=== PATIENT | female | born 1970 | race Caucasian/White ===

== ENCOUNTER 2018-12-23 09:06 | Emergency (ER) | payer BC ==
--- NOTE | 2018-12-23 10:28 | EDM.PDOC ---
ED HPI GENERAL MEDICAL PROBLEM - General Chief Complaint: Laceration Stated Complaint: BIT THREW HER LIP Time Seen by Provider: 12/23/18 09:15 Source of Information: Reports: Patient, Family () History Limitations: Reports: No Limitations - History of Present Illness INITIAL COMMENTS - FREE TEXT/NARRATIVE: 48-year-old female lost her balance tripped striking a seated bench in their home with laceration to her left lower lip and mouth. Applied pressure to her mouth to control the bleeding. She denies any loss of consciousness. She notices little bit of neck discomfort and some pain in her left ring finger. No other complaints are voiced. Upon arrival was able to clean up her bleeding with some peroxide she has just a small poke hole through the bottom part of her mouth which was Dermabond. She does have a laceration on the inside of her mouth but this is well marcated. She has just a small focal at the [place] border of her bottom lip that is well approximated. Onset: Today Duration: Minutes: Location: Reports: Face - Related Data Allergies Allergy/AdvReac Type Severity Reaction Status Date / Time No Known Drug Allergies Allergy Cannot Verified 12/23/18 09:51 Remember Home Meds: Home Meds FLUoxetine HCl [Fluoxetine HCl] 20 mg PO DAILY 12/23/18 [History] Metoprolol Tartrate 50 mg PO BID 12/23/18 [History] amLODIPine Besylate [Amlodipine Besylate] 5 mg PO DAILY 12/23/18 [History] atorvaSTATin Calcium [Atorvastatin Calcium] 20 mg PO BEDTIME 12/23/18 [History] hydroCHLOROthiazide [Hydrochlorothiazide] 25 mg PO DAILY 12/23/18 [History] ED ROS GENERAL - Review of Systems Review Of Systems: ROS reveals no pertinent complaints other than HPI. ED EXAM, SKIN/RASH Exam: See Below Exam Limited By: No Limitations General Appearance: Alert, WD/WN, No Apparent Distress, Obese Eye Exam: Bilateral Eye: EOMI, PERRL Ears: Hearing Grossly Normal Nose: Normal Inspection Throat/Mouth: Normal Inspection, Other (Small laceration on lower powder her mouth this was covered with a Dermabond after cleaning with peroxide. There is a small punctuate laceration at the [place] border as well marcated. There is a laceration is also well marcated inside the patient's lower lip) Head: Atraumatic, Normocephalic Neck: Normal Inspection, Supple, Non-Tender, Full Range of Motion. No: Lymphadenopathy (L), Lymphadenopathy (R) Respiratory/Chest: No Respiratory Distress, Lungs Clear Cardiovascular: Regular Rate, Rhythm Extremities: Other (Mild swelling over the left ring finger and tenderness at the proximal phalanx. No shortening. No rotational deformity. Full range of motion DFP PIP and metacarpal joint are scapulary fill the distal tip of the finger. Full wrist and forearm range of motion left area remaining fingers are atraumatic and without any pain or discomfort left hand) Neurological: Alert, Oriented, No Motor/Sensory Deficits Psychiatric: Normal Affect, Normal Mood ED SKIN PROCEDURES - Laceration/Wound Repair Lower Mouth Lac/Wound length In cm: 0.3 Appearance: Superficial, Linear, Clean Closed with: Dermabond Course - Orders/Labs/Meds Orders: Active Orders 24 hr Category Date Time Status Hand Comp Min 3V Lt [CR] Stat Exams 12/23/18 09:53 Ordered Departure - Departure Time of Disposition: 10:40 Disposition: Home, Self-Care 01 Condition: Good Clinical Impression: Contusion of left ring finger Laceration of mouth, internal Qualifiers: Encounter type: initial encounter Qualified Code(s): S01.512A - Laceration without foreign body of oral cavity, initial encounter - Discharge Information Instructions: Mouth Laceration, [id number] Referrals: Nahed Rodriguez PA-C [Primary Care Provider] - Forms: ED Department Discharge - My Orders Last 24 Hours: My Active Orders 12/23/18 09:53 Hand Comp Min 3V Lt [CR] Stat - Assessment/Plan Last 24 Hours: My Active Orders 12/23/18 09:53 Hand Comp Min 3V Lt [CR] Stat Assessment:: mouth laceration hand contusion left ring finger Plan: 1. Keep the mouth and lips clean. He may use a triple antibiotic over the area. 2. Expect swelling and soreness last several days. 3. Follow-up as needed with her primary care
--- NOTE | 2018-12-23 10:47 | CR ---
[id number] RAD/RAD Hand Left 3V Exam: RAD Hand Left 3V Indication:FALL, COMPLAINT OF PAIN MAINLY IN 4TH (RING) DIGIT. Comparison: No prior imaging for comparison. Discussion: No significant osseous or soft tissue abnormality. Impression: No acute findings in the hand. Drake Carrasco MD 12/23/18 1046 Thank you for allowing us to participate in the care of your patient.
== END 2018-12-23 10:40 | disposition home or self-care (01) ==
LOC: KA.ED 09:06
DX: S01.512A Laceration without foreign body of oral cavity, initial encounter (principal); S60.042A Contusion of left ring finger without damage to nail, initial encounter; Z79.899 Other long term (current) drug therapy; W22.03XA Walked into furniture, initial encounter
CPT/HCPCS: 12001; 12011; 73130-LT; 99283-25